=== PATIENT | female | born 2005 | race Caucasian/White ===

== ENCOUNTER 2024-10-09 05:48 | Emergency (ER) | payer BC, SELFPAY ==
--- OUTSIDE RECORDS SUMMARY | 2024-10-09 05:51 | XMS_ITS | Clinical Summary ---
Author Organization [facility] Address [address] , [address] [place] [address] Phone Care Team Providers Care Roller Stitcher Name Role Phone [facility] Unavailable Unava ilable Conditions or Problems Problem Name Problem Code Onset Date Status Entry Date Provider Comment Standard Description Annotate Low blood pressure 40405869 (SNOMED CT) 11/04 Active 11/04 Farshad Gale MD Low blood pressure Insomnia 925886077 (SNOMED CT) 10/01 Active 10/01 Farshad Gale MD Insomnia Migraine, common 63759100 (SNOMED CT) 10/01 Active 10/01 Farshad Gale MD Migraine without aura New daily persistent headache [id number] (SNOMED CT) 10/01 Active 10/01 Farshad Gale MD New daily persistent headache Medications Medication Instructions Start Date Stop Date Generic Name FORMERLY NAMED [facility] Provider METOPROLOL TARTRATE 25 MG TABS 2x/day metoprolol tartrate 87041566443 Farshad Gale MD HYDROXYZINE HCL 10 MG TABS 05/07 hydroxyzine hcl 74340532699 Fide Gamez PA-C MAGNESIUM OXIDE 400 MG TABS 1 tab BID magnesium oxide 62622821359 Fide Gamez PA-C RIBOFLAVIN 400 MG TABS 1 tab daily riboflavin (vitamin b2) 55245108213 Fide PRICE-B[facility]ly NORTRIPTYLINE HCL 10 MG CAPS 1 capsule by mouth as directed : 1 cap or 10 mg per night; then increase by 1 cap or 10 mg/night every 2 weeks until maximum 5 caps or 50 mg/night or until pain controlled 05/07 nortriptyline 75399938359 Fide Tracydorothy QUINTEROC NORTRIPTYLINE HCL 50 MG CAPS take 1 cap by mouth at bedtime nortriptyline 46259128121 Farshad Gale MD NURTEC 75 MG TBDP take 1 tab at migraine onset. Max: 1 tab per 24 hours. 01/15 rimegepant 80156880935 Fide Tracymadelyn Gamez PA-C RIZATRIPTAN BENZOATE 10 MG TABS take 1 tab at migraine onset. May repeat dose after 2 hours if needed. Max: 2 tab per 24 hours. rizatriptan 49831677751 Farshad Gale MD ELETRIPTAN HYDROBROMIDE 40 MG TABS 1/2 tablet by mouth as needed for pain 1/2 to 1 tab at onset of headache (EDMONDS); may repeat in 2 hour as needed; max 2 tabs per day; no more than 9 days use per month 12/03 eletriptan 12877035639 Fide Tracymadelyn PRICE-C SUMATRIPTAN SUCCINATE 50 MG TABS 12/03 sumatriptan succinate 61862013658 Fide Tracydorothy Gamez PA-C NURTEC 75 MG TBDP take 1 tab at migraine onset. Max: 1 tab per 24 hours. 01/15 rimegepant 07472735081 Fide Gamez PA-C MAGNESIUM OXIDE 400 MG TABS 1 tab qhs 05/07 magnesium oxide 45985199807 Fide QUINTEROC HYDROXYZINE HCL 10 MG TABS 05/07 hydroxyzine hcl 58523811082 Farshad Gale MD SUMATRIPTAN SUCCINATE 50 MG TABS 12/03 sumatriptan succinate 75626430008 Farshad Gale MD ONDANSETRON HCL 4 MG TABS ondansetron hcl 32343068492 Farshad Gale MD NORTRIPTYLINE HCL 10 MG CAPS 1 capsule by mouth as directed : 1 cap or 10 mg per night; then increase by 1 cap or 10 mg/night every 2 weeks until maximum 5 caps or 50 mg/night or until pain controlled 05/07 nortriptyline 23383318539 Farshad Gale MD ELETRIPTAN HYDROBROMIDE 40 MG TABS 1/2 tablet by mouth as needed for pain 1/2 to 1 tab at onset of headache (EDMONDS); may repeat in 2 hour as needed; max 2 tabs per day; no more than 9 days use per month 12/03 eletriptan 24382461517 Farshad Gale MD Medications Administered No information available. Allergies, Adverse Reactions, Alerts Observed no known allergies at Results Date Name Value Unit Range Flag Description Internal Other: Authorizatio n - OBS [email or web address] Yes Authoriza tion: Release of Information - Authorize [facility] - Payment and Healthcare Operations [email or web address] Yes Authoriz ation: Release of Information - Authorize Others/Insurance - Payment and Healthcare Operations HIECONSENT Yes Consent To Release information to the Health Information Exchange (HIE) [email or web address] Yes Authorizat ion: Authorization for [facility] to leave messages, voicemail, send text messages, send emails [email or web address] Yes Authoriz ation: Release/Retrieval of Information to/from Healthcare Facilities, Pharmacy Benefit Payers and Providers [email or web address] Yes Authoriz ation: Notice of privacy practices AUTHBENEFIT Yes Authoriza tion: Assignment of Benefits and Payment Agreement Internal Other: Verbal Autho rization/Emergency Contact - OBS VERBAL_EMER DONE Verbal au thorization and emergency contact Office Visit: Office Visit [place] Note MEDS REVIEW Done Documenta tion of current medications (procedure) Plan of Care Type Date Detail Pending order Follow up [facility]NA Pending order Follow up [facility]NA Pending order Patient Instruct ions Pending order Follow up Pending order Patient Instruct ions Pending order Follow up with N eurologist or LENA Pending order Sleep NEW Consul t w/ Sleep Physician Pending order Sleep NEW Consul t w/ Sleep Physician Pending order Follow up LENA Pending order Patient Instruct ions Pending order Patient Instruct ions Pending order Patient Instruct ions Pending order Follow up in [place] or telemedicine with provider or LENA Procedures Code Procedure Name Date Entry Date ORDERS Follow up [facility]-[id number] Documentation of current medicatio ns ORDERS Patient Instructions ORDERS Follow up with Neurologist or LENA ORDERS Patient Instructions ORDERS Follow up [facility]NA ORDERS Patient Instructions [id number] Documentation of current medicatio ns ORDERS Patient Instructions ORDERS Follow up in clinic or telemedicine with provider or LENA Vital Signs Date Name Value Unit Description BP Diastolic 54 mm[Hg] blood pressu re, diastolic BP Systolic 82 mm[Hg] blood pressur e, systolic Heart Rate 77 /min pulse rate BP Diastolic 48 mm[Hg] blood pressu re, diastolic, second observation BP Systolic 99 mm[Hg] blood pressur e, systolic, second observation Heart Rate 99 pulse rate #2 Immunizations No information available. Advance Directives No information available.
[2024-10-09 05:52] VITALS: BP 100/67; PULSE 137; RESP 18; TEMP 37.1; O2SAT 97; BMI 17.9
--- NOTE | 2024-10-09 06:24 | ED_ITS ---
HPI - General Adult General Chief complaint: Abdominal Pain <Nidhi Lares MD - Last Filed: 10/17/24 02:13> Stated complaint: Abdominal pain <Nidhi Lares MD - Last Filed: 10/17/24 02:13> Time Seen by Provider: 10/09/24 06:07 <Nidhi Lares MD - Last Filed: 10/17/24 02:13> Source: patient <Nidhi Lares MD - Last Filed: 10/17/24 02:13> Mode of arrival: ambulatory <Nidhi Lares MD - Last Filed: 10/17/24 02:13> Limitations: no limitations <Nidhi Lares MD - Last Filed: 10/17/24 02:13> History of Present Illness HPI narrative: 19-year-old female with a notable prior history of migraines presents to the emergency department for evaluation of suprapubic abdominal pain. She has had diarrhea, body aches and low-grade fevers for the past 3 days. Admits to poor oral intake. She started having suprapubic abdominal pain about 3 hours prior to arrival. Does radiate through the abdomen somewhat. Frequent diarrhea but it has been slowing down over the past 24 hours which she attributes to not drinking as much fluid. No injury or trauma, no blood in her stools. She believes it has been nearly 24 hours since she last urinated. No abdominal trauma. No prior history of abdominal surgeries. Achy constant pain, no cramp s. She goes her symptoms and thought she might have urinary retention, causing her to come to the emergency department. Bladder scan is 0 in triage. Has not tried any loperamide for her diarrhea. Reports that she has been taking Tylenol and ibuprofen but when I question how often and how much, it has clearly been over 12 hours since she has taken anything for pain or fever. Last dose sounds like it was probably 3 regular Tylenol tablets which would be 975 at about 6:00 p.m. last night. Denies any chronic abdominal symptoms. No vomiting. Denies chance of , no prior pregnancies. Past medical history is notable for history of migraines and tachycardia. It does not sound like it is abnormal heart rhythms with her tachycardia. She uses Corlanor 5 mg p.r.n. for tachycardia symptoms. Reports that she has this 1-2 times per week on average, last used about 5 days ago. She also takes nortriptyline for migraine prevention. No known drug allergies. Nonsmoker. ROS is notable for the abdominal and generalized symptoms as above as well as some diffuse joint aches. Otherwise denies times 12 systems. <Nidhi Lares MD - Last Filed: 10/17/24 02:13> Related Data Home medications: Home Medications ?Medication ?Instructions ?Recorded ?Confirmed ivabradine 5 mg tablet (Corlanor) 5 mg PO .PRN 10/09/24 10/09/24 nortriptyline 50 mg capsule 50 mg PO QHS 10/09/24 10/09/24 <Nidhi Lares MD - Last Filed: 10/17/24 02:13> Allergies/adverse reactions: Allergies Allergy/AdvReac Type Severity Reaction Status Date / Time No Known Drug Allergies Allergy Verified 10/09/24 08:39 <Nidhi Lares MD - Last Filed: 10/17/24 02:13> [facility] Medical History: Medical History Migraine ?G43.909 - Migraine, unspecified, not intractable, without status migrainosus (ICD-10) Urinary tract infection ?N39.0 - Urinary tract infection, site not specified (ICD-10) <Nidhi Lares MD - Last Filed: 10/17/24 02:13> Social History: Social History Smoking Status: Never smoker Do you use any of these nicotine containing products: None Second hand tobacco smoke exposure: No How often do you have a drink containing alcohol: never AUDIT-C Alcohol total score: 0 Non-prescribed substance use: denies use <Nidhi Lares MD - Last Filed: 10/17/24 02:13> Exam Const: Vital Signs, click to edit/add: Vital Signs - 24 hr 10/09/24 05:52 Temperature 98.7 F Pulse Rate [Pulse Oximeter] 137 H Respiratory Rate 18 Blood Pressure [Ri ght Upper Arm] 100/67 Pulse Oximetry 97 Oxygen Delivery Me thod Room Air <Nidhi Lares MD - Last Filed: 10/17/24 02:13> Vital Signs, click to edit/add: Vital Signs - 24 hr 10/09/24 05:52 Temperature 98.7 F Pulse Rate [Pulse Oximeter] 137 H Respiratory Rate 18 Blood Pressure [Ri ght Upper Arm] 100/67 Pulse Oximetry 97 Oxygen Delivery Me thod Room Air <Solomon Mckeon MD - Last Filed: 10/09/24 09:00> Documenting provider has reviewed patient's vital signs: yes <Nidhi Lares MD - Last Filed: 10/17/24 02:13> Common normals: no apparent distress and alert <Nidhi Lares MD - Last Filed: 10/17/24 02:13> General appearance: cooperative and well kempt <Nidhi Lares MD - Last Filed: 10/17/24 02:13> HENMT: Common normals: normocephalic, oropharynx normal and dentition normal <Nidhi Lares MD - Last Filed: 10/17/24 02:13> Head and scalp: normocephalic <Nidhi Lares MD - Last Filed: 10/17/24 02:13> Mouth: oral and palatal mucosa normal <MD Mauricio Spivey Last Filed: 10/17/24 02:13> Throat: posterior oropharynx normal <Nidhi Lares MD - Last Filed: 10/17/24 02:13> Other: Dry membranes. Lips dry and sunken <Nidhi Lares MD - Last Filed: 10/17/24 02:13> Eye: Common normals: EOMs intact bilaterally and conjunctivae normal <Nidhi Lares MD - Last Filed: 10/17/24 02:13> General eye: normal appearance of both eyes <Nidhi Lares MD - Last Filed: 10/17/24 02:13> Conjunctiva: conjunctiva(e) normal <Nidhi Lares MD - Last Filed: 10/17/24 02:13> Neck & C-Spine: Common normals: full ROM and no lymphadenopathy <MD Mauricio Spivey Last Filed: 10/17/24 02:13> General: normal visual inspection <MD Mauricio Spivey Last Filed: 10/17/24 02:13> Resp: Common normals: normal respiratory effort, no use of accessory muscles and clear to auscultation bilaterally <MD Mauricio Spivey Last Filed: 10/17/24 02:13> Effort & inspection: able to speak in complete sentences <MD Mauricio Spivey Last Filed: 10/17/24 02:13> Auscultation: clear to auscultation bilaterally <MD Mauricio Spivey Last Filed: 10/17/24 02:13> Cardio: Common normals: regular rate, regular rhythm, S1 normal heart sound, S2 normal heart sound and no murmurs <MD Mauricio Spivey Last Filed: 10/17/24 02:13> Rate: regular rate <MD Mauricio Spivey Last Filed: 10/17/24 02:13> Rhythm: regular rhythm <MD Mauricio Spivey Last Filed: 10/17/24 02:13> Heart sounds: S1 normal and S2 normal <MD Mauricio Spivey Last Filed: 10/17/24 02:13> GI: Common normals: Normal to inspection, nondistended, normoactive bowel sounds present, soft to palpation and no masses <MD Mauricio Spivey Last Filed: 10/17/24 02:13> Palpation: soft <MD Mauricio Spivey Last Filed: 10/17/24 02:13> Other: Diffusely tender to the left lower quadrant and suprapubic region only. No rebound tenderness or guarding. <MD Mauricio Spivey Last Filed: 10/17/24 02:13> : Common normals: no CVA tenderness <MD Mauricio Spivey Last Filed: 10/17/24 02:13> Bladder/kidney exam: no CVA tenderness <MD Mauricio Spivey Last Filed: 10/17/24 02:13> Back & Pelvis: Common normals: no CVA tenderness and thoracic and lumbar spine normal to inspection <Nidhi Lares MD - Last Filed: 10/17/24 02:13> Extremity: Common normals: normal to inspection, normal capillary refill and no pedal edema <Nidhi Lares MD - Last Filed: 10/17/24 02:13> Neuro: Common normals: moves all extremities and no focal motor deficits <Nidhi Lares MD - Last Filed: 10/17/24 02:13> Sensorium/orientation: alert <Nidhi Lares MD - Last Filed: 10/17/24 02:13> Speech: speech normal <Nidhi Lares MD - Last Filed: 10/17/24 02:13> Psych: Appearance: well kempt <Nidhi Lares MD - Last Filed: 10/17/24 02:13> Attitude: engaged <Nidhi Lares MD - Last Filed: 10/17/24 02:13> Mood and affect: euthymic mood <Nidhi Lares MD - Last Filed: 10/17/24 02:13> Memory/cognition: memory grossly intact <Nidhi Lares MD - Last Filed: 10/17/24 02:13> Skin: Common normals: no rashes or lesions noted <Nidhi Lares MD - Last Filed: 10/17/24 02:13> General skin exam: no rashes or lesions noted <Nidhi Lares MD - Last Filed: 10/17/24 02:13> Course Course ED Course: 19-year-old female with suprapubic area abdominal pain and decreased urination in the setting of recent diarrheal illness and body aches. Suspect viral etiology of diarrhea, we are seeing lots of cases of this right now. I suspect that her abdominal pain is from dehydration mixed with the viral illness. Exam is quite benign. Will place peripheral IV, give 1 L of normal saline, 4 mg of Zofran. Then will give a 1000 of Tylenol and 2 mg of loperamide. Typical intra-abdominal labs, urinalysis and test. Will likely need 2 L of IV fluid. Viral swabs pending. If symptoms do not improve with these interventions, consider abdominal imaging but would like to avoid radiation risk since initial exam is quite reassuring. I suspect tachycardia is from dehydration. Blood pressures are borderline but not hypotensive at this time. Will ensure that these improve otherwise further workup. Await findings. <Nidhi Lares MD - Last Filed: 10/17/24 02:13> Reevaluation(s) Time of Reevaluation #1: 07:27 <Nidhi Lares MD - Last Filed: 10/17/24 02:13> Reevaluation #1: Patient not really feeling much better after fluids and Tylenol. Initial labs are showing elevated white count and significantly elevated CRP. Will obtain CT of the abdomen and pelvis to further assess. <Nidhi Lares MD - Last Filed: 10/17/24 02:13> Vital Signs Vital signs: Initial Vital Signs Temperature 98.7 F 10/09/24 05:52 Temperature Source Temporal Artery Scan 10/09/24 05:52 Pulse Rate 137 H 10/09/24 05:52 Pulse Rhythm Regular 10/09/24 05:52 Respiratory Rate 18 10/09/24 05:52 Blood Pressure 100/67 10/09/24 05:52 Blood Pressure Mean 78 10/09/24 05:52 Blood Pressure Position Sitting 10/09/24 05:52 Pulse Oximetry 97 10/09/24 05:52 Oxygen Delivery Method Room Air 10/09/24 05:52 Vital Signs Temperature 98.7 F 10/09/24 05:52 Pulse Rate 137 H 10/09/24 05:52 Respiratory Rate 18 10/09/24 05:52 Blood Pressure 100/67 10/09/24 05:52 Pulse Oximetry 97 10/09/24 05:52 Oxygen Delivery Method Room Air 10/09/24 05:52 Temperature 98.7 F 10/09/24 05:52 Pulse Rate 137 H 10/09/24 05:52 Respiratory Rate 18 10/09/24 05:52 Blood Pressure 100/67 10/09/24 05:52 Pulse Oximetry 97 10/09/24 05:52 Oxygen Delivery Method Room Air 10/09/24 05:52 <Nidhi Lares MD - Last Filed: 10/17/24 02:13> Initial Vital Signs Temperature 98.7 F 10/09/24 05:52 Temperature Source Temporal Artery Scan 10/09/24 05:52 Pulse Rate 137 H 10/09/24 05:52 Pulse Rhythm Regular 10/09/24 05:52 Respiratory Rate 18 10/09/24 05:52 Blood Pressure 100/67 10/09/24 05:52 Blood Pressure Mean 78 10/09/24 05:52 Blood Pressure Position Sitting 10/09/24 05:52 Pulse Oximetry 97 10/09/24 05:52 Oxygen Delivery Method Room Air 10/09/24 05:52 Vital Signs Temperature 98.7 F 10/09/24 05:52 Pulse Rate 137 H 10/09/24 05:52 Respiratory Rate 18 10/09/24 05:52 Blood Pressure 100/67 10/09/24 05:52 Pulse Oximetry 97 10/09/24 05:52 Oxygen Delivery Method Room Air 10/09/24 05:52 Temperature 98.7 F 10/09/24 05:52 Pulse Rate 137 H 10/09/24 05:52 Respiratory Rate 18 10/09/24 05:52 Blood Pressure 100/67 10/09/24 05:52 Pulse Oximetry 97 10/09/24 05:52 Oxygen Delivery Method Room Air 10/09/24 05:52 <Solomon Mckeon MD - Last Filed: 10/09/24 09:00> Medications Administered Medications: Discontinued Medications Generic Name Dose Route Start Last Admin Trade Name Freq PRN Reason Stop Dose Admin Acetaminophen 1,000 mg 10/09/24 06:17 10/09/24 06:42 Acetaminophen 500 Mg Tablet PO 10/09/24 06:18 1,000 mg ONCE ONE Administration Sodium Chloride 1,000 mls @ 2,000 mls/hr 10/09/24 06:18 10/09/24 08:16 0.9 % Sodium Chloride 1000 Ml IV 10/09/24 06:47 Infused .Q30M BERNA Infusion Loperamide HCl 4 mg 10/09/24 06:17 10/09/24 06:42 Loperamide Hcl 2 Mg Capsule PO 10/09/24 06:18 4 mg ONCE ONE Administration Ondansetron HCl 4 mg 10/09/24 06:17 10/09/24 06:42 Ondansetron 2 Mg/Ml Inj IVP 10/09/24 06:18 4 mg ONCE ONE Administration <Nidhi Lares MD - Last Filed: 10/17/24 02:13> Discontinued Medications Generic Name Dose Route Start Last Admin Trade Name Emiliano PRN Reason Stop Dose Admin Acetaminophen 1,000 mg 10/09/24 06:17 10/09/24 06:42 Acetaminophen 500 Mg Tablet PO 10/09/24 06:18 1,000 mg ONCE ONE Administration Sodium Chloride 1,000 mls @ 2,000 mls/hr 10/09/24 06:18 10/09/24 08:16 0.9 % Sodium Chloride 1000 Ml IV 10/09/24 06:47 Infused .Q30M BERNA Infusion Loperamide HCl 4 mg 10/09/24 06:17 10/09/24 06:42 Loperamide Hcl 2 Mg Capsule PO 10/09/24 06:18 4 mg ONCE ONE Administration Ondansetron HCl 4 mg 10/09/24 06:17 10/09/24 06:42 Ondansetron 2 Mg/Ml Inj IVP 10/09/24 06:18 4 mg ONCE ONE Administration <Solomon Mckeon MD - Last Filed: 10/09/24 09:00> Medical Decision Making MDM Narrative Medical decision making narrative: This patient was seen by the overnight physician initially and care was transferred to [facility]. The patient did receive a L of normal saline intravenously. Lab results returned with an elevated white count and CRP. A CT scan of the abdomen pelvis is obtained which shows no acute findings. Most likely this patient has a viral gastroenteritis. She is okay to be discharged home. I recommended using Imodium as needed and directed for diarrhea symptoms. <Solomon Mckeon MD - Last Filed: 10/09/24 09:00> Lab Data Lab results reviewed: Yes I reviewed the patient's lab results <Nidhi Lares MD - Last Filed: 10/17/24 02:13> Lab results narrative: Leukocytosis with left shift, elevated CRP <Nidhi Lares MD - Last Filed: 10/17/24 02:13> Labs: Lab Results 10/09/24 10/09/24 Range/Units :25 07:37 WBC 16.28 H (4.50-11.00) K/uL RBC 4.28 (4.00-5.20) m/uL Hgb 12.6 (12.0-16.0) gm/dL Hct 38.4 (33.0-51.0) % MCV 90 (80-100) fL MCH 29 (26-34) pg MCHC 33 (32-36) gm/dL RDW Coeff of Daisy 12.8 (11.5-15.5) % Plt Count 201 (140-440) K/uL Neut % (Auto) 79.5 H (42.0-72.0) % Lymph % (Auto) 7.1 L (20-44) % [place] % (Auto) 12.6 H (0.0-11.0) % Eos % (Auto) 0.4 (0.0-7.0) % Baso % (Auto) 0.1 (0.0-3.0) % Neut # (Auto) 12.90 H (1.7-7.0) K/uL Lymph # (Auto) 1.20 (0.90-2.90) K/uL [place] # (Auto) 2.10 H (0.00-0.90) K/UL Eos # (Auto) 0.10 (0.00-0.50) K/uL Baso # (Auto) 0.00 (0.00-0.30) K/uL Abs Immat Gran (auto) 0.00 (0.00-0.30) K/uL Imm/Tot Granulo (auto) 0.3 % Sodium 133 L (135-149) mmol/L Potassium 4.0 (3.6-5.1) mmol/L Chloride 100 (96-114) mmol/L Carbon Dioxide 23 (20-32) mmol/L Anion Gap 10 (7-15) mEq/L BUN 13 (5-24) mg/dL Creatinine 0.6 (0.5-1.5) mg/dL Estimated Creat Clear 132.76 Estimated GFR 131 ml/min Glucose 109 (60-115) mg/dL Lactate 1.6 (0.5-1.9) mmol/L Calcium 8.6 (8.4-10.6) mg/dL Total Bilirubin 0.8 (0.1-1.5) mg/dL AST 19 (12-35) U/L ALT 14 (4-35) U/L Alkaline Phosphatase 52 (40-150) U/L C-Reactive Protein 18.5 H (0.5-1.0) mg/dL Total Protein 6.9 (6.0-8.3) g/dL Albumin 4.2 (3.3-5.0) g/dL Lipase < 10 L (23-300) U/L Urine Color Cheryl A (Yellow) Urine Appearance Clear (Clear) Urine pH 5.5 (5.0-8.5) Ur Specific [place] >= 1.030 (1.000-1.030) Urine Protein 1+ A (Negative) Urine Glucose (UA) Negative (Negative) Urine Ketones Trace A (Negative) Urine Blood Negative (Negative) Urine Nitrite Negative (Negative) Urine Bilirubin Negative (Negative) Urine Urobilinogen 0.2 (0.2-1.0) Ur Leukocyte Esterase Negative (Negative) Urine RBC 0-2 (0-2) Urine WBC 0-2 (0-5) Ur Squamous Epith Cells Moderate A (None-Few) Urine Bacteria Moderate A (None) Urine Mucus Few A (None) Urine HCG, Qual Negative (Negative) SARS-CoV-2 (PCR) Negative SARS-CoV-2 (Negative) Influenza Type A (PCR) Negative PCR FLU A (Negative) Influenza Type B (PCR) Negative PCR FLU B (Negative) RSV (PCR) Negative PCR RSV (Negative) <Nidhi Lares MD - Last Filed: 10/17/24 02:13> Lab Results 10/09/24 10/09/24 Range/Units 06:25 07:37 WBC 16.28 H (4.50-11.00) K/uL RBC 4.28 (4.00-5.20) m/uL Hgb 12.6 (12.0-16.0) gm/dL Hct 38.4 (33.0-51.0) % MCV 90 (80-100) fL MCH 29 (26-34) pg MCHC 33 (32-36) gm/dL RDW Coeff of Daisy 12.8 (11.5-15.5) % Plt Count 201 (140-440) K/uL Neut % (Auto) 79.5 H (42.0-72.0) % Lymph % (Auto) 7.1 L (20-44) % [place] % (Auto) 12.6 H (0.0-11.0) % Eos % (Auto) 0.4 (0.0-7.0) % Baso % (Auto) 0.1 (0.0-3.0) % Neut # (Auto) 12.90 H (1.7-7.0) K/uL Lymph # (Auto) 1.20 (0.90-2.90) K/uL [place] # (Auto) 2.10 H (0.00-0.90) K/UL Eos # (Auto) 0.10 (0.00-0.50) K/uL Baso # (Auto) 0.00 (0.00-0.30) K/uL Abs Immat Gran (auto) 0.00 (0.00-0.30) K/uL Imm/Tot Granulo (auto) 0.3 % Sodium 133 L (135-149) mmol/L Potassium 4.0 (3.6-5.1) mmol/L Chloride 100 (96-114) mmol/L Carbon Dioxide 23 (20-32) mmol/L Anion Gap 10 (7-15) mEq/L BUN 13 (5-24) mg/dL Creatinine 0.6 (0.5-1.5) mg/dL Estimated Creat Clear 132.76 Estimated GFR 131 ml/min Glucose 109 (60-115) mg/dL Lactate 1.6 (0.5-1.9) mmol/L Calcium 8.6 (8.4-10.6) mg/dL Total Bilirubin 0.8 (0.1-1.5) mg/dL AST 19 (12-35) U/L ALT 14 (4-35) U/L Alkaline Phosphatase 52 (40-150) U/L C-Reactive Protein 18.5 H (0.5-1.0) mg/dL Total Protein 6.9 (6.0-8.3) g/dL Albumin 4.2 (3.3-5.0) g/dL Lipase < 10 L (23-300) U/L Urine Color Cheryl A (Yellow) Urine Appearance Clear (Clear) Urine pH 5.5 (5.0-8.5) Ur Specific [place] >= 1.030 (1.000-1.030) Urine Protein 1+ A (Negative) Urine Glucose (UA) Negative (Negative) Urine Ketones Trace A (Negative) Urine Blood Negative (Negative) Urine Nitrite Negative (Negative) Urine Bilirubin Negative (Negative) Urine Urobilinogen 0.2 (0.2-1.0) Ur Leukocyte Esterase Negative (Negative) Urine RBC 0-2 (0-2) Urine WBC 0-2 (0-5) Ur Squamous Epith Cells Moderate A (None-Few) Urine Bacteria Moderate A (None) Urine Mucus Few A (None) Urine HCG, Qual Negative (Negative) SARS-CoV-2 (PCR) Negative SARS-CoV-2 (Negative) Influenza Type A (PCR) Negative PCR FLU A (Negative) Influenza Type B (PCR) Negative PCR FLU B (Negative) RSV (PCR) Negative PCR RSV (Negative) <Solomon Mckeon MD - Last Filed: 10/09/24 09:00> Imaging Data CT scan - abdomen: Radiologist's impression: 1. Minimal descending colonic wall thickening, which can be accentuated by incomplete distention. No significant adjacent inflammatory changes. Findings could relate to early infectious-inflammatory colitis in the appropriate clinical settings. Moderate colonic stool burden. No bowel obstruction. 2. Nonspecific small hypodense lesion within the spleen measuring 1 cm, consider further evaluation with ultrasound if clinically indicated. Differential consideration includes cyst/hemangioma. <Solomon Mckeon MD - Last Filed: 10/09/24 09:00> Discharge Plan Discharge Clinical Impression: Gastroenteritis <Nidhi Lares MD - Last Filed: 10/17/24 02:13> Patient Disposition: Home, Self-Care <Nidhi Lares MD - Last Filed: 10/17/24 02:13> Condition: Stable <Nidhi Lares MD - Last Filed: 10/17/24 02:13> Additional Instructions: Take frequent sips of liquids and increase diet otherwise as tolerated. Use Imodium as needed and directed for controlling diarrhea. Follow up with MD return if worsening. <Nidhi Lares MD - Last Filed: 10/17/24 02:13> Prescriptions: No Action nortriptyline 50 mg capsule 50 mg PO QHS ivabradine [Corlanor] 5 mg tablet 5 mg PO .PRN Rx Instructions: must administer with a meal/food <Nidhi Lares MD - Last Filed: 10/17/24 02:13> Follow Up/Referrals: Provider,Not a Local [Primary Care Provider] - <Nidhi Lares MD - Last Filed: 10/17/24 02:13> Stand Alone Forms: MyHealth Info Instructions <Nidhi Lares MD - Last Filed: 10/17/24 02:13>
[2024-10-09 06:34] LABS: Lactate* 1.6 mmol/L (0.5-1.9)
[2024-10-09] MEDS: 0.9 % SODIUM CHLORIDE 1000 ml 1,000 ML 2000 ML IV (06:41)
[2024-10-09] MEDS: ACETAMINOPHEN 500 MG TABLET 1000 MG PO (06:42)
[2024-10-09] MEDS: LOPERAMIDE HCL 2 MG CAPSULE 4 MG PO (06:42)
[2024-10-09] MEDS: ONDANSETRON 2 MG/ML inj 4 MG IVP (06:42)
--- OUTSIDE RECORDS SUMMARY | 2024-10-09 06:56 | XMS_ITS | Encounter Summary ---
Author Organization [place] Address [address] [place] [id number] Care Team Providers Care [employer] Certified Network Associate Name Role Phone Austin Oliva MD Unavailable Ip, Dhruv Francis MD Unavailable [phone] No Ref-Primary, Physician Primary Care Provider Ip, Dhruv Francis MD Unavailable [phone] Reason for Referral * CV Cardio consult (Routine) - Pending Review Specialty Diagnoses / Procedures Referred By Jacinta t Referred To Contact Cardiovascular Disease Diagnoses Sinus tachycardia Vijaya Leal MD [facility] [id number] [place] [address] Phone: tel: fax: Dhruv MD [address] [facility] [address] [place] [address] Phone: tel: fax: Referral ID Status Reason Start Date Expiration Date V isits Requested Visits Authorized [id number] Pending Review 12/13/2023 12/12/2024 1 1 Question Answer Reason for Consult: General Cardiology Scheduling Instructions: [facility] will call you to coordinate your care as prescribed by your provider. If you don't hear from a account service representative within 2 business days, please call [phone]. Additional Information: continued sinus tachycardia Comments Referral Transcribed by external fax Provider: Dr Vijaya Leal affiliated with [facility] [place] [address] [place] [address] . [place]: No If yes was is the [facility] Authorization Number: Phone number: [phone] Fax number: [phone] Please be aware that coverage of these services is subject to the terms and limitations of your health insurance plan. Call member services at your health plan with any benefit or coverage questions. [facility] will call you to coordinate your care as prescribed by your provider. If you don't hear from a account service representative within 2 business days, please call [phone]. Encounter Details Date Type Department Care Team (Late st Contact Info) Description 12/13/2023 Transcribe Orders GENERIC EXTERNAL DATA DEPARTMENT Provider, Generic External Data Sinus tachycardia (Primary Dx) Social History Tobacco Use Types Packs/Day Years Used Date Smoking Tobacco: Never Smokeless Tobacco: Never Alcohol Use Standard Drinks/Week Comments Never 0 (1 standard drink = 0.6 oz pur e alcohol) AUDIT-C Answer Date Recorded Q1: How often do you have a drink containing alc ohol? 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 Gender Identity Not on file Sexual Orientation Not on file documented as of this encounter Plan of Treatment Scheduled Referrals Name Type Priority Associated Diagnoses Orde r Schedule Adult Cardiology Eval Motion Picture Camera Lens Technician Referral Referral Routine Sinus tachycardia Expected: 12/13/2023 (Approximate), Expires: 12/12/2024 documented as of this encounter Visit Diagnoses Diagnosis Sinus tachycardia- Primary Other specified cardiac dysrhythmias documented in this encounter Additional Health Concerns Assessment Noted Time PHQ-9 Depression Total Score: 9 01/29/20 21 4:18 PM CDT documented as of this encounter Care Teams [employer] Certified Network Associate Relationship Specialty Start Date End Date No Ref-Primary, Physician PCP - General 11/17/23 Austin Oliva MD [address] [place] [id number] Assigned PCP 03/23/21 03/20/24 Ip, Dhruv Francis MD [address] [place] [address] Cardiovascular Disease 10/19/23 IpDhruv MD [address] [place] [id number] Assigned Heart and Vascular Provider 11/20/23 documented as of this encounter
--- OUTSIDE RECORDS SUMMARY | 2024-10-09 06:56 | XMS_ITS | Clinical Summary ---
Author Organization [facility] Address [address] [place] [address] Care Team Providers Care Flight Communications Specialist Name Role Phone Unavailable Primary Care Provider Unavailabl e Source Comments You are receiving this document as you are listed as the primary care provider,follow-up provider, or the patient has been referred to you for consultation.This is in compliance with the Medicare andMedicaid EHR Incentive Program,which states Providers who transition their patient to another setting of careor provider of care or refers their patient to another provider of care shouldprovide summary care record for each transition of care or referral. [facility] Allergies No known active allergies Medications Medication Sig Dispensed Refills Start Date End Date Status magnesium oxide (MAG-OX) 400 MG tablet MAGNESIUM OXIDE 400 MG TABS Active metoprolol tartrate (LOPRESSOR) 25 MG tablet METOPROLOL TARTRATE 25 MG TABS Active nortriptyline (PAMELOR) 50 MG capsule Take 1 Capsule (50 mg) by mouth daily at bedtime. 07/02/2024 Active Active Problems No known active problems Encounters Date Type Department Care Team Description 07/26/2024 7:05 PM RADIO COMMUNICATIONS SUPERINTENDENT Ancillary Procedure [facility] [address] [facility] [place] [address] Cassidy Jules APRN, CNP Acute cough; Fever, unspecified; Wheezing; SOB (shortness of breath) 07/26/2024 7:00 PM RADIO COMMUNICATIONS SUPERINTENDENT Office Visit Urgent Care at [facility] Urgent [facility] [address] [facility] [place] [address] Cassidy Jules APRN, CNP Acute cough (Primary Dx); Fever, unspecified; Wheezing; SOB (shortness of breath) from Last 3 Months Social History Tobacco Use Types Packs/Day Years Used Date Smoking Tobacco: Never Tobacco Cessation:Counseling Given: Not Answered Sex and Gender Information Value Date Recorded Sex Assigned at Not on file Gender Identity Not on file Sexual Orientation Not on file Last Filed Vital Signs Vital Sign Reading Time Taken Comments Blood Pressure 112/76 07/26/2024 6:45 PM RADIO COMMUNICATIONS SUPERINTENDENT Pulse 105 07/26/2024 6:45 PM RADIO COMMUNICATIONS SUPERINTENDENT Temperature 37.3 C (99.1 F) 07/26/2024 6:45 PM RADIO COMMUNICATIONS SUPERINTENDENT Respiratory Rate 20 07/26/2024 6:45 PM RADIO COMMUNICATIONS SUPERINTENDENT Oxygen Saturation 100% 07/26/2024 6:45 PM RADIO COMMUNICATIONS SUPERINTENDENT Inhaled Oxygen Concentration - - Weight - - Height - - Body Mass Index - - Plan of Treatment Health Maintenance Due Date Last Done Comments Cervical Cancer Screening Due 2003 Chlamydia 2003 Hep C Screening (Preventive Services) 2003 HPV Vaccine (1 - 3-dose series) 2018 HIV Screening (Preventive Services) 2019 Adult Preventive Visit 2021 HepB (1) 2022 COVID-19 Vaccine ( season) 2024 Influenza (#1) 2024 DTaP/Tdap/Td (8 - Tdap) 03/02/2032 03/02/20, 12/23/2015, 11/08/2008, Additional history exists Zoster/Shingles (1 of 2) 2053 Hib Completed 09/12/2004, 11/29, 2003 Pneumococcal Aged Out 05/14/2005, 11/2003, 03/04/2004, Additional history exists No longer eligible based on patient's age to complete this topic IPV (Polio) Completed 11/08/2008, 01/2004, 2003, Additional history exists HepA Completed 12/23/2015, 03/16/2013 MCV4 Completed 01/28/2021, 12/23/2015 Procedures Procedure Name Priority Date/Time Associated Diagnosis Comments XR CHEST 2 VIEWS STAT 07/26/2024 7:06 PM RADIO COMMUNICATIONS SUPERINTENDENT Acute cough Fever, unspecified Wheezing SOB (shortness of breath) from Last 3 Months Results * XR Chest 2 Views (07/26/2024 7:06 PM RADIO COMMUNICATIONS SUPERINTENDENT) Anatomical Region Laterality Modality Chest, Lung Computed Radiogr aphy 07/26/2024 7:06 PM RADIO COMMUNICATIONS SUPERINTENDENT Narrative 07/26/2024 7:34 PM RADIO COMMUNICATIONS SUPERINTENDENT EXAM: XR CHEST 2 VIEWS LOCATION: [facility] DATE: 07/26/2024 INDICATION: Cough wheezing, sob fever r/o pneumonia, Acute cough, Fever, unspecified, Wheezing, Shortness of breath, COUGH COMPARISON: None. IMPRESSION: There is some slight prominence of perihilar lung markings raise the possibility for mild peribronchial inflammation. No consolidative infiltrates, pneumothorax, or active CHF seen. Minimal thoracolumbar spinal curvature convex to the left. Procedure Note Gio Stark MD - 07/26/2024 EXAM: XR CHEST 2 VIEWS LOCATION: [facility] DATE: 07/26/2024 INDICATION: Cough wheezing, sob fever r/o pneumonia, Acute cough, Fever,unspecified, Wheezing, Shortness of breath, COUGH COMPARISON: None. IMPRESSION: There is some slight prominence of perihilar lung markingsraise the possibility for mild peribronchial inflammation. Noconsolidative infiltrates, pneumothorax, or active CHF seen. Minimalthoracolumbar spinal curvature convex to the left. Cassidy Jules ASSISTANT SIGNAL MAINTAINER, ORDER MANAGEMENT SPECIALIST RAD [facility] from Last 3 Months LETTY CHOUDHARY Personal/Family 01/01/1978 [address] [place] [address]
--- OUTSIDE RECORDS SUMMARY | 2024-10-09 06:56 | XMS_ITS | Encounter Summary ---
Author Organization [facility] Address [address] [place] [address] Care Team Providers Care Library Manager Name Role Phone Elvira Merrill MD Primary Care Provider Un available Elvira Merrill MD Unavailable Unavaila Elvira Ribera MD Unavailable Unavaila ble Austin Oliva MD Unavailable [phone] Austin Oliva MD Unavailable [phone] IpDhruv MD Unavailable [phone] No Ref-Primary, Physician Primary Care Provider IpDhruv MD Unavailable [phone] Encounter Details Date Type Department Care Team (Late st Contact Info) Description [address] [place] [id number] Elvira Merrill MD HEALTHY PATHWAY (Primary Dx) Social History Tobacco Use Types Packs/Day Years Used Date Smoking Tobacco: Never Smokeless Tobacco: Never Alcohol Use Standard Drinks/Week Comments Never 0 (1 standard drink = 0.6 oz pur e alcohol) Comments No Sex and Gender Information Value Date Recorded Sex Assigned at Not on file 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 Gender Identity Not on file Sexual Orientation Not on file documented as of this encounter Plan of Treatment Not on file documented as of this encounter Visit Diagnoses Diagnosis HEALTHY PATHWAY- Primary documented in this encounter Care Teams Library Manager Relationship Specialty Start Date End Date Elvira Merrill MD PCP - General 03 11/16/23 Elvira Merrill MD PCP - Assigned PCP 01/24/18 11/01/18 No Ref-Primary, Physician PCP - General 11/17/23 Elvira Merrill MD Assigned PCP 01/24/18 12/24/18 Austin Oliva MD [address] [place] [address] Assigned PCP 12/25/18 01/27/20 Austin Oliva MD [address] [place] [address] Assigned PCP 03/23/21 03/20/24 Ip, Dhruv Francis MD [address] [place] [id number] Cardiovascular Disease 10/19/23 Dhruv Stewart MD [address] [place] [id number] Assigned Heart and Vascular Provider 11/20/23 documented as of this encounter
--- OUTSIDE RECORDS SUMMARY | 2024-10-09 06:56 | XMS_ITS | Clinical Summary ---
Author Organization [facility] Address [address] [place] [address] Care Team Providers Care Charcoal Kiln Burner Name Role Phone Ip, Dhruv Francis MD Unavailable [phone] No Ref-Primary, Physician Primary Care Provider Ip, Dhruv Francis MD Unavailable [phone] Allergies No known active allergies Medications ADVIL ORIndications:Dy suria,Fever, unspecified Reported on 10/28/2016 Active multivitamin, therapeutic with minerals (THERA-VIT-M) TABSIndications: Routine infant or child health check Take 1 tablet by mouth daily Reported on 10/28/2016 Active Melatonin 5 MG CHEW Active magnesium oxide (MAG-OX) 400 MG tablet MAGNESIUM OXIDE 400 MG TABS Active nortriptyline (PAMELOR) 50 MG capsule Take 50 mg by mouth at bedtime Active metoprolol tartrate (LOPRESSOR) 25 MG tablet METOPROLOL TARTRATE 25 MG TABS Active rizatriptan (MAXALT) 10 MG tablet RIZATRIPTAN BENZOATE 10 MG TABS 3 Active ivabradine (CORLANOR) 5 MG tabletIndication s:Tachycardia Take 1 tablet (5 mg) by mouth 2 times daily (with meals) 180 tablet 3 4 Active Active Problems Problem Noted Date Diagnosed Date Stenosis of lacrimal canaliculi 2003 Immunizations Name Administration Dates Next Due Comvax (HIB/HepB) 09/12/2004,2003,10/16/19 04 DTAP (<7y) 11/08/2008, 5,03/04/2004,2003, 2003 HEPA 12/23/2015,03/16/2013 MMR 11/08/2008,05/14/2005 Meningococcal ACWY (Menactra ) 01/28/2021,12/23/2015 Pneumococcal (PCV 7) 05/14/2005,06/02/2004,03/04,2003 Poliovirus, inactivated (IPV) 11/08/2008, 004,2003,2003 TDAP Vaccine (Adacel) 12/23/2015 Varicella 11/08/2008,05/14/2005 Family History Medical History Relation Comments Family History Negative Mother Relation Status Comments Mother Social History Tobacco Use Types Packs/Day Years Used Date Smoking Tobacco: Never Smokeless Tobacco: Never Tobacco Cessation:Counseling Given: Not Answered Alcohol Use Standard Drinks/Week Comments Never 0 (1 standard drink = 0.6 oz pur e alcohol) AUDIT-C Answer Date Recorded Q1: How often do you have a drink containing alc ohol? 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 Gender Identity Not on file Sexual Orientation Not on file Last Filed Vital Signs Vital Sign Reading Time Taken Comments Blood Pressure 114/78 01/26/2024 3:13 PM CDT Pulse 80 01/26/2024 3:13 PM CDT Temperature 37.3 C (99.1 F) 01/28/2021 3:05 PM CDT Respiratory Rate 20 01/28/2021 3:05 PM CDT Oxygen Saturation 99% 01/26/2024 3:13 PM CDT Inhaled Oxygen Concentration - - Weight 58.7 kg (129 lb 6.4 oz) 01/26/2024 3:13 P M CDT Height 179.1 cm (5' 10.5) 01/26/2024 3:13 PM CD T Body Mass Index 18.3 01/26/2024 3:13 PM CDT Plan of Treatment Health Maintenance Due Date Last Done Comments ADVANCE CARE PLANNING 2003 ANNUAL REVIEW OF HM ORDERS 2003 HIV SCREENING 2018 HPV IMMUNIZATION (1 - 3-dose series) 2018 MENINGITIS B IMMUNIZATION (1 of 2 - Standard) 2019 HEPATITIS C SCREENING 2021 YEARLY PREVENTIVE VISIT 01/28/2022 01/29/20 21, 12/23/2015, 03/16/2013, Additional history exists COVID-19 Vaccine ( - season) 2024 INFLUENZA VACCINE (#1) 2024 PAP 2024 PHQ-2 (once per calendar year) 2024 01/26/2024, 01/28/2021, 01/28/2021, Additional history exists DTAP/TDAP/TD IMMUNIZATION (8 - Td or Tdap) 03/02/2032 03/02/2022, 12/23/2015, 11/08/2008, Additional history exists ZOSTER IMMUNIZATION (1 of 2) 2053 HEPATITIS B IMMUNIZATION Completed 005, 2003, 2003 Pneumococcal Vaccine: Pediatrics (0 to 5 Years) and At-Risk Patients (6 to 49 Years) Aged Out 05/14/2005, 06/02/2004, 03/04/2004, Additional history exists No longer eligible based on patient's age to complete this topic MENINGITIS IMMUNIZATION Completed 01/28/2021, 12/22 Insurance BCBS OUT OF STATE BCBS OUT OF STATE BCBS OUT OF STATE BCBS OUT OF STATE Care Teams Charcoal Kiln Burner Relationship Specialty Start Date End Date No Ref-Primary, Physician PCP - General 11/17/23 IpDhruv MD [address] [place] [address] Cardiovascular Disease 10/19/23 Dhruv Stewart MD [address] [place] [address] Assigned Heart and Vascular Provider 11/20/23
--- OUTSIDE RECORDS SUMMARY | 2024-10-09 06:56 | XMS_ITS | Clinical Summary ---
Author Organization [facility] Address [place], [place] [address] Care Team Providers Care Director Internal Control Name Role Phone Pcp, No Primary Care Provider Unavailabl e Allergies No known active allergies Medications No known medications Active Problems No known active problems Immunizations Name Administration Dates Next Due Tdap 03/02/2022 Social History Tobacco Use Types Packs/Day Years Used Date Smoking Tobacco: Never Assessed Comments Unknown Sex and Gender Information Value Date Recorded Sex Assigned at Not on file Legal Sex Female 8:37 PM VISUAL C DEVELOPER Gender Identity Not on file Sexual Orientation Not on file Obstetrics History Last Filed Vital Signs Vital Sign Reading Time Taken Comments Blood Pressure 130/83 03/02/2022 9:14 AM CDT Pulse 94 03/02/2022 9:14 AM CDT Temperature 37.3 C (99.1 F) 03/02/2022 9:14 AM CDT Respiratory Rate 14 03/02/2022 9:14 AM CDT Oxygen Saturation 99% 03/02/2022 9:14 AM CDT Inhaled Oxygen Concentration - - Weight - - Height - - Body Mass Index - - Plan of Treatment Health Maintenance Due Date Last Done Comments Depression screening for age 12+ 2015 HIV for age 15-65 2018 HPV series for age 9-26 (1 - 3-dose series) 2018 Chlamydia for age 16-24 2019 BMI (ht and wt on same day) for age 18+ 2021 Hepatitis C screening for ag e 18-79 2021 COVID-19 vaccine series (2023- season) 2024 Influenza for age 9-49 04/30/2024 Pap test for age 21-65 2024 Tetanus booster 03/02/2032 03/02/2022 Tdap Completed 03/02/2022 Meningococcal series for age 11-21 Aged Out No longer eligible based on patient's age to complete this topic Pneumococcal series for age 6-49 Aged Out No longer eligible based on patient's age to complete this topic Insurance Care Teams Director Internal Control Relationship Specialty Start Date End Date PcpHeidi PCP - General 03/02/22
--- OUTSIDE RECORDS SUMMARY | 2024-10-09 06:56 | XMS_ITS | Clinical Summary ---
Author Organization [facility] Address [address] , [address] [place] [address] Phone Care Team Providers Care Railway Signal Technician Name Role Phone [facility] Unavailable Unava ilable Conditions or Problems Problem Name Problem Code Onset Date Status Entry Date Provider Comment Standard Description Annotate Low blood pressure 15644087 (SNOMED CT) 11/04 Active 11/04 Farshad Gale MD Low blood pressure Insomnia 911073603 (SNOMED CT) 10/01 Active 10/01 Farshad Gale MD Insomnia Migraine, common 17778736 (SNOMED CT) 10/01 Active 10/01 Farshad Gale MD Migraine without aura New daily persistent headache 872093405252689 (SNOMED CT) 10/01 Active 10/01 Farshad Gale MD New daily persistent headache Medications Medication Instructions Start Date Stop Date Generic Name [facility] Provider METOPROLOL TARTRATE 25 MG TABS 2x/day metoprolol tartrate 91163937049 Farshad Gale MD HYDROXYZINE HCL 10 MG TABS 05/07 hydroxyzine hcl 81240433847 Fide Gamez PA-C MAGNESIUM OXIDE 400 MG TABS 1 tab BID magnesium oxide [id number] Fide Gamez PA-C RIBOFLAVIN 400 MG TABS 1 tab daily riboflavin (vitamin b2) 59228374060 Fide PRICE-Beverly NORTRIPTYLINE HCL 10 MG CAPS 1 capsule by mouth as directed : 1 cap or 10 mg per night; then increase by 1 cap or 10 mg/night every 2 weeks until maximum 5 caps or 50 mg/night or until pain controlled 05/07 nortriptyline 69798456719 Fide Tracydorothy QUINTEROC NORTRIPTYLINE HCL 50 MG CAPS take 1 cap by mouth at bedtime nortriptyline 59608028483 Farshad Gale MD NURTEC 75 MG TBDP take 1 tab at migraine onset. Max: 1 tab per 24 hours. 01/15 rimegepant 84348831243 Fide Tracymadelyn Gamez PA-C RIZATRIPTAN BENZOATE 10 MG TABS take 1 tab at migraine onset. May repeat dose after 2 hours if needed. Max: 2 tab per 24 hours. rizatriptan 61332704011 Farshad Gale MD ELETRIPTAN HYDROBROMIDE 40 MG TABS 1/2 tablet by mouth as needed for pain 1/2 to 1 tab at onset of headache (EDMONDS); may repeat in 2 hour as needed; max 2 tabs per day; no more than 9 days use per month 12/03 eletriptan 13058264110 Fide Tracymadelyn PRICE-C SUMATRIPTAN SUCCINATE 50 MG TABS 12/03 sumatriptan succinate 52540593120 Fide Tracydorothy Gamez PA-C NURTEC 75 MG TBDP take 1 tab at migraine onset. Max: 1 tab per 24 hours. 01/15 rimegepant 63782993374 Fide Gamez PA-C MAGNESIUM OXIDE 400 MG TABS 1 tab qhs 05/07 magnesium oxide 93579433878 Fide QUINTEROC HYDROXYZINE HCL 10 MG TABS 05/07 hydroxyzine hcl 74194948361 Farshad Gale MD SUMATRIPTAN SUCCINATE 50 MG TABS 12/03 sumatriptan succinate 99846915232 Farshad Gale MD ONDANSETRON HCL 4 MG TABS ondansetron hcl 74475219267 Farshad Gale MD NORTRIPTYLINE HCL 10 MG CAPS 1 capsule by mouth as directed : 1 cap or 10 mg per night; then increase by 1 cap or 10 mg/night every 2 weeks until maximum 5 caps or 50 mg/night or until pain controlled 05/07 nortriptyline 01599845575 Farshad Gale MD ELETRIPTAN HYDROBROMIDE 40 MG TABS 1/2 tablet by mouth as needed for pain 1/2 to 1 tab at onset of headache (EDMONDS); may repeat in 2 hour as needed; max 2 tabs per day; no more than 9 days use per month 12/03 eletriptan 25471933376 Farshad Gale MD Medications Administered No information [...] Name Date Entry Date ORDERS Follow up [facility]-[id number] Documentation of current medicatio ns ORDERS Patient Instructions ORDERS Follow up with Neurologist or LENA ORDERS Patient Instructions ORDERS Follow up LENA ORDERS Patient Instructions [facility]-[id number] Documentation of current medicatio ns ORDERS Patient [...]
[2024-10-09 06:57] LABS: Albumin* 4.2 g/dL (3.3-5.0); Chloride* 100 mmol/L (96-114); Sodium* 133 mmol/L (135-149)
[2024-10-09 07:00] LABS: Alkaline Phosphatase* 52 U/L (40-150); Anion Gap 10 mEq/L (7-15); Aspartate Amino Transferase* 19 U/L (12-35); Bilirubin Total* 0.8 mg/dL (0.1-1.5); Carbon Dioxide* 23 mmol/L (20-32); Creatinine* 0.6 mg/dL (0.5-1.5); Est. Creatinine Clearance* 132.76; Estimated Glomerular Filt Rate 131 ml/min; Total Protein* 6.9 g/dL (6.0-8.3)
[2024-10-09 07:01] LABS: Alanine Aminotransferase* 14 U/L (4-35); Blood Urea Nitrogen* 13 mg/dL (5-24); Calcium* 8.6 mg/dL (8.4-10.6); Glucose* 109 mg/dL (60-115)
[2024-10-09 07:07] LABS: Basophils Percent Auto 0.1 % (0.0-3.0); Eosinophils Percent Auto 0.4 % (0.0-7.0); Hematocrit 38.4 % (33.0-51.0); Hemoglobin* 12.6 gm/dL (12.0-16.0); Immature Granulocytes Pct Auto 0.3 %; Lymphocytes Percent Auto 7.1 % (20-44); Mean Corpuscular HGB Conc 33 gm/dL (32-36); Mean Corpuscular Hemoglobin 29 pg (26-34); Mean Corpuscular Volume 90 fL (80-100); Monocytes Percent Auto 12.6 % (0.0-11.0); Neutrophils Percent Auto 79.5 % (42.0-72.0); Platelet Count* 201 K/uL (140-440); RDW Coefficient of Variation % 12.8 % (11.5-15.5); Red Blood Count 4.28 m/uL (4.00-5.20); White Blood Count* 16.28 K/uL (4.50-11.00)
[2024-10-09 07:12] LABS: Slide Review Reflex No
[2024-10-09 07:15] LABS: PCR FLU A Negative PCR FLU A (Negative); PCR FLU B Negative PCR FLU B (Negative); PCR RSV Negative PCR RSV (Negative); SARS PCR* Negative SARS-CoV-2 (Negative)
[2024-10-09 07:16] LABS: C Reactive Protein* 18.5 mg/dL (0.5-1.0); Lipase* < 10 U/L (23-300)
--- NOTE | 2024-10-09 07:25 | CRLHL7_ITS ---
For Patients: As a result of the Century Cures Act, medical imaging exams and procedure reports are released immediately into your electronic medical record. You may view this report before your referring provider. If you have questions, please contact your health care provider. INDICATION: Lower abdominal pain, bladder has full filling, fever and diarrhea. TECHNIQUE: CT abdomen and pelvis acquired with 62 cc Isovue 370 IV contrast. COMPARISON: None. FINDINGS: Lower chest: Unremarkable. Liver: Normal in size and attenuation. No suspicious masses. Focal fatty infiltration adjacent to falciform ligament. Gallbladder and bile ducts: No stones or inflammation. No biliary dilatation. Pancreas: No mass or inflammation. Spleen: Normal in size. A small hypodense lesion within the spleen measuring 1 centimeter, too small to characterize and could relate to a cyst/hemangioma. Adrenal glands: No suspicious mass. Kidneys: Bilateral kidneys are normal in size and show symmetric enhancement. No nephrolithiasis or hydronephrosis. GI tract: There is minimal wall thickening of the descending colon as seen on series number 4/60, wall thickening can be accentuated by incomplete bowel distention. Moderate colonic stool burden is present. Normal appendix. No abnormal dilatation of the small bowel loops. Vasculature: Abdominal aorta is normal in caliber. Lymph nodes: No lymphadenopathy. Peritoneum/Abdominal Wall: No free air or significant free fluid. Pelvis: Uterus is normal in size and attenuation. Bones: Lumbar vertebral body height and alignment is maintained. No concerning bony lesion. IMPRESSION: 1. Minimal descending colonic wall thickening, which can be accentuated by incomplete distention. No significant adjacent inflammatory changes. Findings could relate to early infectious-inflammatory colitis in the appropriate clinical settings. Moderate colonic stool burden. No bowel obstruction. 2. Nonspecific small hypodense lesion within the spleen measuring 1 cm, consider further evaluation with ultrasound if clinically indicated. Differential consideration includes cyst/hemangioma. Please note that all CT scans at this facility use dose modulation, iterative reconstruction, and/or weight-based dosing when appropriate to reduce radiation dose to as low as reasonably achievable. Dictated by Mitzi De Santiago MD @ 10/09/2024 8:47:22 AM (Electronically Signed)
[2024-10-09 07:46] LABS: Appearance Urine Clear (Clear); Bilirubin Urine Negative (Negative); Blood Urine Negative (Negative); Color Urine Amber (Yellow); Glucose Urine Negative (Negative); Ketones Urine Trace (Negative); Leukocyte Esterase Urine Negative (Negative); Nitrite Urine Negative (Negative); Protein Urine 1+ (Negative); Specific Gravity Urine >= 1.030 (1.000-1.030); Urobilinogen Urine 0.2 (0.2-1.0); pH Urine 5.5 (5.0-8.5)
[2024-10-09 08:12] LABS: Ur HCG Qualitative* Negative (Negative)
[2024-10-09 08:13] LABS: Bacteria Urine Moderate; RBC Urine 0-2 (0-2); Squamous Epithelial Cell Urine Moderate (None-Few); WBC Urine 0-2 (0-5)
[2024-10-09 08:14] LABS: Mucus Urine Few
== END 2024-10-09 09:06 | disposition home or self-care (01) ==
PROVIDERS: Emergency Provider Family Medicine
DX: K52.9 Noninfective gastroenteritis and colitis, unspecified (principal)
CPT/HCPCS: 36415; 74177; 80053; 81001; 81003; 81025; 83605; 83690; 85025; 86140; 87086; 87631; 96374; 99283; 99284; A9270; J2405; J7030; Q9967